=== PATIENT | female | born 1990 | race Caucasian/White ===

== ENCOUNTER 2017-08-30 17:00 | Emergency (ER) | payer MEDICARE, OTHER ==
[2017-08-30 18:13] VITALS: BP 123/80; PULSE 99; RESP 20; TEMP 98; O2SAT 100
[2017-08-30 18:26] LABS: APPEARANCE,URINE Clear; BILIRUBIN,URINE NEGATIVE (NEGATIVE); COLOR,URINE Light yellow; GLUCOSE, URINE (UA) NEGATIVE (NEGATIVE); KETONES,URINE NEGATIVE (NEGATIVE); LEUKOCYTE ESTERASE ,URINE NEGATIVE (NEGATIVE); NITRATE,URINE NEGATIVE (NEGATIVE); OCCULT BLOOD,URINE NEGATIVE (NEG-TRACE); PH,URINE 5.5; UROBILINOGEN,URINE 0.2 (0.2-1.0 EU)
[2017-08-30 18:35] LABS: RBC,URINE NEG (0-3AV/HPF); WBC,URINE 0-2 (0-5AV/HPF)
[2017-08-30] MEDS ORDERED: CLINDAMYCIN HYDROCHLORIDE 150 MG CAP PO SCH (20:15)
== END 2017-08-30 20:22 | disposition home or self-care (01) | DRG 923 ==
LOC: ED 17:00
DX: T74.21XA Adult sexual abuse, confirmed, initial encounter (principal); N76.0 Acute vaginitis; Y07.432 Male friend of parent (co-residing in household), perpetrator of maltreatment and neglect
CPT/HCPCS: 81001; 87210; 99285